=== PATIENT | female | born 1995 | race African-American/Black ===

== ENCOUNTER 2016-08-08 10:31 | Emergency (ER) | payer OTHER ==
[~2016-08-08] VITALS: Ht 167.6 cm; Wt 77.1 kg
[2016-08-08 11:00] VITALS: BP 109/77
[2016-08-08] MEDS ORDERED: IBUPROFEN600 MG ORAL (11:34)
--- NOTE | 2016-08-08 12:00 | Diagnostic Imaging Report ---
Indication: Pain 3 views of the right knee were obtained. Findings: No acute fracture, malalignment, or joint effusion are identified. Joint space is relatively well-maintained. Bone mineralization is within normal limits for age. Impression: Negative exam
[2016-08-08 12:10] VITALS: BP 109/80
--- NOTE | 2016-08-08 12:12 | Diagnostic Imaging Report ---
Indication: Pain Comparison: None Findings: Two views of the right tibia and fibula were obtained. No acute fracture, malalignment, or periosteal reaction are identified. Soft tissues are unremarkable. Impression: Negative examination of the tibia and fibula
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
== END 2016-08-08 12:15 | disposition home or self-care (01) ==
LOC: EDBD 10:31 → EMR 11:03
DX: S80.11XA Contusion of right lower leg, initial encounter (principal); V43.52XA Car driver injured in collision with other type car in traffic accident, initial encounter; Y92.410 Unspecified street and highway as the place of occurrence of the external cause
CPT/HCPCS: 29530; 99284